=== PATIENT | female | born 1950 | race American Indian/Alaskan Native ===

== ENCOUNTER 2016-09-13 15:16 | Outpatient (CLI) | payer MEDICARE ==
[2016-09-19 12:53] LABS: CYTOMETRY FIRST MARKER SCANNED INTO MED REC; FLOW ADDITIONAL MARKER SCANNED INTO MED REC; FLOW CYTOMETRY >16 SCANNED INTO MED REC
== END 2016-09-13 15:17 | disposition home or self-care (01) ==
LOC: LABHHL 15:16
PROVIDERS: ATTEND Surgery
DX: N63 Unspecified lump in breast (principal)
CPT/HCPCS: 88184; 88185; 88305